=== PATIENT | female | born 1960 | race African-American/Black ===

== ENCOUNTER 2018-01-21 17:01 | Emergency (ER) | payer OTHER ==
--- NOTE | 2018-01-21 17:08 | PDOC ---
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 Needlestick in thumb, picked up a dirty needle Pertinent physical exam findings: NAD even and unlabored breathing no evidence of injury on thumb I have ordered the following: none This patient will proceed to the ED for further evaluation.
[2018-01-21 17:10] VITALS: BP 117/62; PULSE 69; TEMP 97.8; BMI 21.4
[2018-01-21] MEDS ORDERED: DIPHTH,PERTUSS(ACELL),TET 0.5 ML DISP.SYRIN IM ONE (17:22)
[2018-01-21] MEDS ORDERED: HIV POST EXPOSURE PROPHYLAXIS KIT NR ONE (17:26)
--- NOTE | 2018-01-21 17:30 | PDOC ---
History of Present Illness - General Chief Complaint: Blood/Body Fluid Exposure SJR Stated Complaint: STUCK BY NEEDLE Time Seen by Provider: 01/21/18 17:05 - History of Present Illness Initial Comments: 57-year-old female without comorbidities presents for evaluation of post exposure prophylaxis. She states she was at her job picked up a needle in a kitchen which was uncovered and stuck her finger. She is unsure of her tetanus status. She was stuck in the right thumb. She has no other complaints. This occurred prior to arrival. 01/21/18 17:27 Past History - Past Medical History Allergies/Adverse Reactions: Allergies Allergy/AdvReac Type Severity Reaction Status Date / Time No Known Allergies Allergy Verified 01/21/18 17:05 Home Medications: Ambulatory Orders NK [No Known Home Medication] 01/21/18 COPD: No - Suicide/Smoking/Psychosocial Hx Smoking History: Never smoked Have you smoked in the past 12 months: No Information on smoking cessation initiated: No Hx Alcohol Use: No Drug/Substance Use Hx: No Substance Use Type: None Review of Systems - Review of Systems All Other Systems: Reviewed and Negative *Physical Exam - Vital Signs Last Vital Signs Temp Pulse Resp BP Pulse Ox 97.8 F 69 18 117/62 100 01/21/18 17:05 01/21/18 17:05 01/21/18 17:05 01/21/18 17:05 01/21/18 17:05 - Physical Exam Comments: HEAD: NC/AT EYES: Conjuntiva clear MS: Full ROM in all joints without edema NEUROLOGIC: No gross sensory or motor deficits, NVID SKIN: Normal color and temperature no lesions or rashes 01/21/18 17:28 ED Treatment Course - LABORATORY CBC & Chemistry Diagram: 01/21/18 17:31 01/21/18 17:31 Medical Decision Making - Medical Decision Making Status post exposure prophylactic therapy. Patient will wait OraQuick prescription for post exposure prophylaxis was given. Referral to the [facility] for continuation of therapy was also given. 01/21/18 17:28 *DC/Admit/Observation/Transfer Diagnosis at time of Disposition: Needle stick injury of finger - Discharge Dispostion Disposition: HOME Condition at time of disposition: Stable Decision to Admit order: No - Referrals Referrals: Dontae Farias NP [Nurse Practitioner] - Will,Bibiana, [employer] [Nurse Practitioner] - Alivia Flannery MD [Staff Physician] - - Patient Instructions Additional Instructions: Follow-up with the [facility] for continuation of post exposure prophylaxis therapy. Return to the emergency room should he have any issues or develop any symptoms. He must follow-up in one to 2 days. - Post Discharge Activity Forms/Work/School Notes: Back to Work
[2018-01-21 17:44] LABS: BASO % 1.4 % (0-2.0); EOS % 2.4 % (0-4.5); HEMATOCRIT 37.2 % (32.4-45.2); HEMOGLOBIN 12.4 GM/dL (10.7-15.3); LYMPH % 45.6 % (8-40); MCH 28.6 pg (25.7-33.7); MCHC 33.5 g/dl (32.0-36.0); MEAN CELL VOLUME 85.5 fl (80-96); MONO % 9.4 % (3.8-10.2); NEUT % 41.2 % (42.8-82.8); PLATELET COUNT 209 K/MM3 (134-434); RBC 4.35 M/mm3 (3.60-5.2); RDW 14.1 % (11.6-15.6); WHITE BLOOD COUNT 3.4 K/mm3 (4.0-10.0)
[2018-01-21 18:05] LABS: ALBUMIN 4.3 g/dl (3.4-5.0); ALK PHOS 89 U/L (45-117); ANION GAP 8 (8-16); BILIRUBIN,TOTAL 0.3 mg/dL (0.2-1.0); BLOOD UREA NITROGEN 10 mg/dL (7-18); CALCIUM 9.6 mg/dL (8.5-10.1); CHLORIDE 107 mmol/L (98-107); CO2 30 mmol/L (21-32); CREATININE 0.6 mg/dL (0.55-1.02); GLUCOSE,RANDOM 87 mg/dL (74-106); LDH 199 U/L (84-246); POTASSIUM 4.4 mmol/L (3.5-5.1); SGOT/AST 47 U/L (15-37); SGPT/ALT 57 U/L (12-78); SODIUM 145 mmol/L (136-145); TOT PROT 7.3 g/dl (6.4-8.2)
[2018-01-21] MEDS ORDERED: HIV POST EXPOSURE PROPHYLAXIS KIT PO ONE (18:37)
[2018-01-25 06:07] LABS: HBsAG SCREEN Negative (Negative)
== END 2018-01-21 18:47 | disposition home or self-care (01) ==
LOC: JERFT 17:01
PROC: 3E0234Z Introduction of Serum, Toxoid and Vaccine into Muscle, Percutaneous Approach (ICD-10-PCS; principal; 2018-01-21)
DX: Z77.21 Contact with and (suspected) exposure to potentially hazardous body fluids (principal); W46.0XXA Contact with hypodermic needle, initial encounter; Y93.89 Activity, other specified; Y92.9 Unspecified place or not applicable
CPT/HCPCS: 36415; 80053; 83615; 84703; 85025; 86317; 86706; 86803; 87340; 87389; 90715; 99281-25